=== PATIENT | female | born 1965 | race Caucasian/White ===

== ENCOUNTER → 2024-10-31 | Outpatient (CLI) | payer OTHER ==
[~2024-10-31] VITALS: Ht 168.9 cm; Wt 92.7 kg
[~2024-10-31] MED LIST: APAP325T4 PO; LIDOCAINE 1% MDV 20ML VIAL As Ordered ONE; MIDAZOLAM INJ 2MG/2ML VIAL As Ordered ONE; NS (Normal Saline) 0.9% 1,000 ML IV SCH; ceFAZolin 2 GM/D5W 50 ML IV BAG As Ordered ONE; ceFAZolin SOD 2 GM in IV 1 EA IV ONE; fentaNYL 100 MCG/2 ML INJECTION As Ordered ONE
[2024-10-31 13:19] VITALS: TEMP 97.9
[2024-10-31 14:40] VITALS: BP 151/90; O2SAT 99
== END ==
LOC: M IRPRO 12:12
PROVIDERS: ATTEND Specialist
DX: C53.9 Malignant neoplasm of cervix uteri, unspecified (principal)
CPT/HCPCS: 36561; 99152; J0690; J1642; J2250; J3010

== ENCOUNTER → 2024-11-03 | Outpatient (CLI) | payer OTHER ==
[~2024-11-03] MED LIST changes: -LIDOCAINE 1% MDV 20ML VIAL As Ordered ONE; -MIDAZOLAM INJ 2MG/2ML VIAL As Ordered ONE; -NS (Normal Saline) 0.9% 1,000 ML IV SCH; -ceFAZolin 2 GM/D5W 50 ML IV BAG As Ordered ONE; -ceFAZolin SOD 2 GM in IV 1 EA IV ONE; -fentaNYL 100 MCG/2 ML INJECTION As Ordered ONE
== END ==
LOC: M ONCR 09:47
PROVIDERS: ATTEND General Practice
DX: C53.9 Malignant neoplasm of cervix uteri, unspecified (principal); R59.0 Localized enlarged lymph nodes; Z80.3 Family history of malignant neoplasm of breast; Z87.891 Personal history of nicotine dependence; Z88.0 Allergy status to penicillin

== ENCOUNTER 2024-11-06 07:47 | Outpatient (RCR) | payer OTHER ==
[2024-11-13] MEDS ORDERED: ONDA-284 PO (09:12)
[2024-11-13] MEDS ORDERED: LIDO30CR18 TOP (09:12)
[2024-11-13] MEDS ORDERED: PROC10TA5 PO (09:12)
== END 2024-11-11 ==
LOC: M ONCR 07:47
PROVIDERS: ATTEND General Practice
DX: Z51.0 Encounter for antineoplastic radiation therapy (principal); C53.1 Malignant neoplasm of exocervix

== ENCOUNTER → 2024-12-12 | Outpatient (RCR) | payer OTHER ==
[~2024-12-12] MED LIST changes: +LEVO1TAB40 PO; +LIDO30CR18 TOP; +LOPE2TAB12 PO; +NYST-38 PO; +ONDA-284 PO; +PROC10TA5 PO
== END ==
LOC: M ONCR 11-13 08:18
PROVIDERS: ATTEND General Practice
DX: Z51.0 Encounter for antineoplastic radiation therapy (principal); C53.1 Malignant neoplasm of exocervix
CPT/HCPCS: 77336; 77386; G0463

== ENCOUNTER → 2024-12-19 | Outpatient (CLI) | payer OTHER ==
[~2024-12-19] MED LIST changes: +PROHANCE 279.3MG/ML 15ML VIAL ONE; +PROHANCE 279.3MG/ML 5ML VIAL ONE
== END ==
LOC: M PLAIMG 10:15
PROVIDERS: ATTEND General Practice
DX: C53.1 Malignant neoplasm of exocervix (principal)

== ENCOUNTER 2024-12-24 08:00 | Outpatient (RCR) | payer OTHER ==
[~2024-12-24 08:00] MED LIST changes: -PROHANCE 279.3MG/ML 15ML VIAL ONE; -PROHANCE 279.3MG/ML 5ML VIAL ONE
== END 2025-01-09 ==
LOC: M ONCR 08:00
PROVIDERS: ATTEND General Practice
DX: Z51.0 Encounter for antineoplastic radiation therapy (principal); C53.1 Malignant neoplasm of exocervix

== ENCOUNTER → 2025-02-13 | Outpatient (REF) | payer OTHER | LOC: M LAB REF 14:21 | PROVIDERS: ATTEND Radiology Radiation Oncology | DX: E04.1 Nontoxic single thyroid nodule (principal) ==

== ENCOUNTER → 2025-03-06 | Outpatient (CLI) | payer OTHER ==
[~2025-03-06] MED LIST changes: +LEVO25TA5 PO
== END ==
LOC: M RAD 13:22
PROVIDERS: ATTEND Nurse Practitioner Women's Health
DX: M79.601 Pain in right arm (principal); R22.31 Localized swelling, mass and lump, right upper limb

== ENCOUNTER → 2025-03-17 | Outpatient (CLI) | payer OTHER | LOC: M PLARAD 09:58 | PROVIDERS: ATTEND General Practice | DX: C53.1 Malignant neoplasm of exocervix (principal) | CPT/HCPCS: 78815; A9552 ==

== ENCOUNTER → 2025-03-24 | Outpatient (CLI) | payer OTHER | LOC: M ONCR 10:34 | PROVIDERS: ATTEND General Practice | DX: C53.1 Malignant neoplasm of exocervix (principal); Z79.620 Long term (current) use of immunosuppressive biologic; Z87.891 Personal history of nicotine dependence; Z88.0 Allergy status to penicillin; Z88.1 Allergy status to other antibiotic agents; Z79.890 Hormone replacement therapy; Z79.899 Other long term (current) drug therapy; Z92.21 Personal history of antineoplastic chemotherapy; Z92.3 Personal history of irradiation ==

== ENCOUNTER → 2025-06-24 | Outpatient (CLI) | payer OTHER ==
[~2025-06-24] MED LIST changes: +LEVO50TA5 PO
== END ==
LOC: M ONCR 10:27
PROVIDERS: ATTEND General Practice
DX: C53.1 Malignant neoplasm of exocervix (principal); Z79.899 Other long term (current) drug therapy; Z87.891 Personal history of nicotine dependence; Z92.21 Personal history of antineoplastic chemotherapy; Z92.3 Personal history of irradiation

== ENCOUNTER → 2025-09-15 | Outpatient (CLI) | payer OTHER ==
[~2025-09-15] MED LIST changes: +LEVO75TA4 PO
== END ==
LOC: M PLARAD 13:19
PROVIDERS: ATTEND Obstetrics & Gynecology Gynecologic Oncology
DX: C53.8 Malignant neoplasm of overlapping sites of cervix uteri (principal)
CPT/HCPCS: 78815; A9552

== ENCOUNTER → 2025-09-28 | Outpatient (CLI) | payer OTHER ==
[~2025-09-28] MED LIST changes: +DULO1CAP6 PO
== END ==
LOC: M ONCR 14:40
PROVIDERS: ATTEND General Practice
DX: C53.1 Malignant neoplasm of exocervix (principal); G62.9 Polyneuropathy, unspecified; Z92.21 Personal history of antineoplastic chemotherapy; Z92.3 Personal history of irradiation; Z79.620 Long term (current) use of immunosuppressive biologic; Z87.891 Personal history of nicotine dependence; Z88.0 Allergy status to penicillin; Z88.1 Allergy status to other antibiotic agents; Z79.899 Other long term (current) drug therapy

== ENCOUNTER → 2025-10-28 | Outpatient (CLI) | payer OTHER ==
[~2025-10-28] MED LIST changes: +AMIT50TA PO
== END ==
LOC: M ONCR 08:26
PROVIDERS: ATTEND General Practice
DX: Z08 Encounter for follow-up examination after completed treatment for malignant neoplasm (principal); Z85.41 Personal history of malignant neoplasm of cervix uteri; Z92.21 Personal history of antineoplastic chemotherapy; Z92.3 Personal history of irradiation; Z79.620 Long term (current) use of immunosuppressive biologic; Z87.891 Personal history of nicotine dependence; Z88.0 Allergy status to penicillin; Z88.1 Allergy status to other antibiotic agents; Z79.899 Other long term (current) drug therapy